=== PATIENT | male | born 1985 | race Caucasian/White ===

== ENCOUNTER 2018-01-25 19:44 | Emergency (ER) | payer OTHER ==
[~2018-01-25] VITALS: Ht 180.3 cm; Wt 95.3 kg
== END 2018-01-25 22:51 | disposition home or self-care (01) ==
LOC: ER 19:44
DX: R31.29 Other microscopic hematuria (principal); R30.0 Dysuria

== ENCOUNTER 2019-11-25 23:03 | Emergency (ER) | payer OTHER ==
[~2019-11-25] VITALS: Ht 180.3 cm; Wt 92.5 kg
== END 2019-11-26 01:41 | disposition left against medical advice (07) ==
LOC: ER 23:03
DX: Z53.20 Procedure and treatment not carried out because of patient's decision for unspecified reasons (principal)